=== PATIENT | male | born 1995 | race American Indian/Alaskan Native ===

== ENCOUNTER 2019-04-11 23:08 | Emergency (ER) | payer MEDICAID ==
[2019-04-11] MEDS ORDERED: ATIVAN ONE (23:32)
[2019-04-11 23:36] LABS: Basophils % (Auto) 0.7 % (0.0-1.8); Eosinophils # (Auto) 0.1 K/mm3 (0.0-0.4); Eosinophils % (Auto) 1.9 % (0.0-4.3); Hematocrit 44.4 % (35.5-45.6); Hemoglobin 15.2 gm/dl (11.8-15.2); Lymphocytes # (Auto) 3.1 K/mm3 (1.2-5.4); Lymphocytes % (Auto) 45.6 % (13.4-35.0); Mean Corpuscular HGB Conc 34 % (32-34); Mean Corpuscular Volume 83 fl (84-94); Monocytes # (Auto) 0.9 K/mm3 (0.0-0.8); Monocytes % (Auto) 12.5 % (0.0-7.3); Platelet Count 168 K/mm3 (140-440); Red Blood Count 5.37 M/mm3 (3.65-5.03); Red Cell Distribution Width 13.1 % (13.2-15.2)
[2019-04-11] MEDS ORDERED: WATER FOR INJ Sterile (PF) 10 ML ONE (23:39)
[2019-04-11] MEDS ORDERED: GEODON IM ONE ×2 (23:39→23:45)
--- NOTE | 2019-04-11 23:40 | XRay Report ---
PROCEDURE: XR CHEST 1V AP TECHNIQUE: Chest radiograph single view. HISTORY: Chest Pain COMPARISONS: None . FINDINGS: Heart: Normal. Mediastinum/Vessels: Normal. Lungs/Pleural space: Normal. Bony thorax: No acute osseous abnormality. Life support devices: None. IMPRESSION: No acute cardiopulmonary abnormality. This document is electronically signed by Elvi Contreras DO., April 11 2019 11:38:31 PM ET
[2019-04-11 23:45] LABS: INR 0.95 (0.87-1.13)
[2019-04-11] MEDS ORDERED: ATIVAN IV ONE (23:45)
[2019-04-11 23:46] LABS: Partial Thromboplastin Time 26.5 Sec. (24.2-36.6)
--- NOTE | 2019-04-11 23:47 | Emergency Department Report ---
ED Chest Pain HPI - General Chief Complaint: Chest Pain Stated Complaint: CHEST PAIN Time Seen by Provider: 04/11/19 23:18 Source: patient, family, EMS Mode of arrival: Wheelchair Limitations: Physical Limitation - History of Present Illness Initial Comments: 23-year-old male with a past medical history of hypertension and ADHD presents to the hospital with complaints of chest pain. Mother at the bedside. Patient is hyperventilating and unable to provide any history of present illness. Mother states that patient was found slumped over and unresponsive by other members of the family. He was brought into the home and was noted to have intermittent hyperventilation and shaking all over. Upon EMS arrival patient did receive aspirin and nitroglycerin and continued to exhibit signs and symptoms of hyperventilation around to the hospital. Upon arrival here patient was hyperventilating, tachypnea, with carpopedal spasms. He is unable to speak due to tachypnea c/o chest pain radiating to his back. He is compliant with his medications with the last dose this evening. Mother states that patient discontinued his ADHD medication once was diagnosed with hypertension this past October. Sx tonight happened after taking Lisinopril/hctz for the first time tonight. Prior to this patient was on Norvasc 5 mg but it did not adequately control his pressure - Related Data Home Medications Medication Instructions Recorded Confirmed Last Taken Lisinopril/Hydrochlorothiazide 1 tab PO QDAY 04/12/19 04/12/19 Unknown [Zestoretic 20-25 mg] Omeprazole 40 mg PO 04/12/19 Unknown SUMAtriptan succinate [Imitrex] 50 mg PO 04/12/19 Unknown Tamsulosin [Flomax] 0.4 mg PO QDAY 04/12/19 04/12/19 Unknown Allergies Allergy/AdvReac Type Severity Reaction Status Date / Time No Known Allergies Allergy Verified 04/11/19 23:31 Heart Score - HEART Score History: Slightly suspicious EKG: Normal Age: < 45 Risk factors: 1-2 risk factors Troponin: < normal limit HEART Score: 1 ED Review of Systems ROS: Stated complaint: CHEST PAIN Other details as noted in HPI Comment: Unobtainable due to pts medical conditions ED Past Medical Hx - Past Medical History Previous Medical History?: Yes Hx Hypertension: Yes - Surgical History Past Surgical History?: No - Social History Smoking Status: Current Every Day Smoker Substance Use Type: None - Medications Home Medications: Home Medications Medication Instructions Recorded Confirmed Last Taken Type Lisinopril/Hydrochlorothiazide 1 tab PO QDAY 04/12/19 04/12/19 Unknown History [Zestoretic 20-25 mg] Omeprazole 40 mg PO 04/12/19 Unknown History SUMAtriptan succinate [Imitrex] 50 mg PO 04/12/19 Unknown History Tamsulosin [Flomax] 0.4 mg PO QDAY 04/12/19 04/12/19 Unknown History ED Physical Exam - General Limitations: Physical Limitation - Other Other exam information: General: No limitations, patient is alert in no acute distress Head exam: Atraumatic, normocephalic Eyes exam: Normal appearance, pupils equal reactive to light, extraocular movements intact ENT: Moist mucous membrane, normal oropharynx Neck exam: Normal inspection, full range of motion, no meningismus nontender Respiratory exam: Intermittent periods of hyperventilation and breath holding, lungs clear to auscultation Cardiovascular: Normal rate and rhythm Abdomen: Soft, nondistended, and nontender, with normal bowel sounds, no rebound, or guarding Extremity: Full range of motion normal inspection no deformity, no calf tend erness or edema, carpopedal spasm Back: Normal Inspection, full range of motion, no tenderness Neurologic: Alert, oriented x3, cranial nerves intact, no motor or sensory deficit Skin: Warm, dry, intact ED Course Vital Signs 04/11/19 04/11/19 04/11/19 23:11 23:15 23:30 Temperature 98.8 F Pulse Rate 96 H 82 Respiratory 30 H 11 L 44 H Rate Blood Pressure 137/101 162/110 O2 Sat by Pulse 99 100 99 Oximetry 04/11/19 04/11/19 04/12/19 23:41 23:46 00:00 Temperature Pulse Rate 68 70 76 Respiratory 13 14 Rate Blood Pressure 180/114 146/79 O2 Sat by Pulse 100 98 Oximetry 04/12/19 04/12/19 04/12/19 00:07 00:58 01:00 Temperature Pulse Rate 57 L 60 73 Respiratory 10 L 10 L 11 L Rate Blood Pressure 146/79 152/83 121/85 O2 Sat by Pulse 100 96 Oximetry 04/12/19 04/12/19 04/12/19 01:30 02:00 03:00 Temperature Pulse Rate 64 64 Respiratory 9 L 10 L 10 L Rate Blood Pressure 141/88 129/75 107/69 O2 Sat by Pulse 100 100 100 Oximetry 04/12/19 04/12/19 03:30 04:00 Temperature Pulse Rate 57 L 59 L Respiratory 10 L 10 L Rate Blood Pressure 130/81 142/99 O2 Sat by Pulse 100 Oximetry - Reevaluation(s) Reevaluation #1: 04/12/19 23:45 Pt required Ativan 2 mg followed by Geodon 20 mg IM to finally calm him down to the point where he was not hyperventilating and shaking his arms 04/12/19 01:10 bp improved once pt calmed after receiving meds listed above. Reevaluation #2: 04/12/19 01:17 pt sleeping. He will need a reevaluation once he is awake. IF he is back to normal baseline he may be d/alba with vistaril prn anxiety. If he is still anxiou s or psychotic he will need a psych eval. DANIEL score - Daniel Score Age > 65: (0) No Aspirin use within the Past 7 Days: (0) No 3 or more CAD Risk Factors: (0) No 2 or more Angina events in past 24 hrs: (0) No Known CAD with more than 50% Stenosis: (0) No Elevated Cardiac Markers: (0) No ST Deviation Greater than 0.5mm: (0) No DANIEL Score: 0 ED Medical Decision Making - Lab Data Result diagrams: 04/11/19 23:23 04/11/19 23:23 Lab Results 04/11/19 04/11/19 04/11/19 Range/Units 23:23 23:23 23:23 WBC 6.8 (4.5-11.0) K/mm3 RBC 5.37 H (3.65-5.03) M/mm3 Hgb 15.2 (11.8-15.2) gm/dl Hct 44.4 (35.5-45.6) % MCV 83 L (84-94) fl MCH 28 (28-32) pg MCHC 34 (32-34) % RDW 13.1 L (13.2-15.2) % Plt Count 168 (140-440) K/mm3 Lymph % (Auto) 45.6 H (13.4-35.0) % [place] % (Auto) 12.5 H (0.0-7.3) % Eos % (Auto) 1.9 (0.0-4.3) % Baso % (Auto) 0.7 (0.0-1.8) % Lymph # 3.1 (1.2-5.4) K/mm3 [place] # 0.9 H (0.0-0.8) K/mm3 Eos # 0.1 (0.0-0.4) K/mm3 Baso # 0.0 (0.0-0.1) K/mm3 Seg Neutrophils % 39.3 L (40.0-70.0) % Seg Neutrophils # 2.7 (1.8-7.7) K/mm3 PT 13.2 (12.2-14.9) Sec. INR 0.95 (0.87-1.13) APTT 26.5 (24.2-36.6) Sec. D-Dimer < 135.0 (0-234) ng/mlDDU Sodium 140 (137-145) mmol/L Potassium 3.9 (3.6-5.0) mmol/L Chloride 102.4 (98-107) mmol/L Carbon Dioxide 24 (22-30) mmol/L Anion Gap 18 mmol/L BUN 17 (9-20) mg/dL Creatinine 1.4 (0.8-1.5) mg/dL Estimated GFR > 60 ml/min BUN/Creatinine Ratio 12 % Glucose 118 H (75-100) mg/dL Calcium 10.2 (8.4-10.2) mg/dL Total Bilirubin 0.30 (0.1-1.2) mg/dL AST 28 (5-40) units/L ALT 30 (7-56) units/L Alkaline Phosphatase 92 (35-129) units/L Total Creatine Kinase (55-170) units/L CK-MB (CK-2) (0.0-4.0) ng/mL CK-MB (CK-2) Rel Index (0-4) Troponin T (0.00-0.029) ng/mL Total Protein 7.1 (6.3-8.2) g/dL Albumin 4.4 (3.9-5) g/dL Albumin/Globulin Ratio 1.6 % Urine Color (Yellow) Urine Turbidity (Clear) Urine pH (5.0-7.0) Ur Specific [place] (1.003-1.030) Urine Protein (Negative) mg/dL Urine Glucose (UA) (Negative) mg/dL Urine Ketones (Negative) mg/dL Urine Blood (Negative) Urine Nitrite (Negative) Urine Bilirubin (Negative) Urine Urobilinogen (<2.0) mg/dL Ur Leukocyte Esterase (Negative) Urine WBC (Auto) (0.0-6.0) /HPF Urine RBC (Auto) (0.0-6.0) /HPF Urine Mucus /HPF Plasma/Serum Alcohol (0-0.07) % 04/11/19 04/11/19 04/12/19 Range/Units 23:23 23:23 00:05 WBC (4.5-11.0) K/mm3 RBC (3.65-5.03) M/mm3 Hgb (11.8-15.2) gm/dl Hct (35.5-45.6) % MCV (84-94) fl MCH (28-32) pg MCHC (32-34) % RDW (13.2-15.2) % Plt Count (140-440) K/mm3 Lymph % (Auto) (13.4-35.0) % [place] % (Auto) (0.0-7.3) % Eos % (Auto) (0.0-4.3) % Baso % (Auto) (0.0-1.8) % Lymph # (1.2-5.4) K/mm3 [place] # (0.0-0.8) K/mm3 Eos # (0.0-0.4) K/mm3 Baso # (0.0-0.1) K/mm3 Seg Neutrophils % (40.0-70.0) % Seg Neutrophils # (1.8-7.7) K/mm3 PT (12.2-14.9) Sec. INR (0.87-1.13) APTT (24.2-36.6) Sec. D-Dimer (0-234) ng/mlDDU Sodium (137-145) mmol/L Potassium (3.6-5.0) mmol/L Chloride (98-107) mmol/L Carbon Dioxide (22-30) mmol/L Anion Gap mmol/L BUN (9-20) mg/dL Creatinine (0.8-1.5) mg/dL Estimated GFR ml/min BUN/Creatinine Ratio % Glucose (75-100) mg/dL Calcium (8.4-10.2) mg/dL Total Bilirubin (0.1-1.2) mg/dL AST (5-40) units/L ALT (7-56) units/L Alkaline Phosphatase (35-129) units/L Total Creatine Kinase 541 H (55-170) units/L CK-MB (CK-2) 3.8 (0.0-4.0) ng/mL CK-MB (CK-2) Rel Index 0.7 (0-4) Troponin T < 0.010 (0.00-0.029) ng/mL Total Protein (6.3-8.2) g/dL Albumin (3.9-5) g/dL Albumin/Globulin Ratio % Urine Color Yellow (Yellow) Urine Turbidity Clear (Clear) Urine pH 7.0 (5.0-7.0) Ur Specific [place] 1.013 (1.003-1.030) Urine Protein <15 mg/dl (Negative) mg/dL Urine Glucose (UA) Neg (Negative) mg/dL Urine Ketones Neg (Negative) mg/dL Urine Blood Neg (Negative) Urine Nitrite Neg (Negative) Urine Bilirubin Neg (Negative) Urine Urobilinogen < 2.0 (<2.0) mg/dL Ur Leukocyte Esterase Neg (Negative) Urine WBC (Auto) 2.0 (0.0-6.0) /HPF Urine RBC (Auto) 1.0 (0.0-6.0) /HPF Urine Mucus Few /HPF Plasma/Serum Alcohol < 0.01 (0-0.07) % - EKG Data -: EKG Interpreted by Sc EKG shows normal: sinus rhythm, axis Rate: normal - Radiology Data Radiology results: report reviewed PROCEDURE: XR CHEST 1V AP TECHNIQUE: Chest radiograph single view. HISTORY: Chest Pain COMPARISONS: None . FINDINGS: Heart: Normal. Mediastinum/Vessels: Normal. Lungs/Pleural space: Normal. Bony thorax: No acute osseous abnormality. Life support devices: None. IMPRESSION: No acute cardiopulmonary abnormality. ROCEDURE: CT HEAD/BRAIN WO CON TECHNIQUE: Computerized tomography of the head was performed without contrast material. CT DOSE LENGTH PRODUCT: 1049.5 mGycm HISTORY: unresponsive episode COMPARISONS: None . FINDINGS: Skull and scalp: Normal . Paranasal sinuses: Normal . Ventricles and subarachnoid spaces: Normal . Cerebrum: No evidence of hemorrhage, acute infarction or mass . Cerebellum and brainstem: No evidence of hemorrhage, acute infarction or mass . Vasculature: Normal . Other: None . ASPECTS: 10 IMPRESSION: Normal Examination . PROCEDURE: CT ANGIO CHEST TECHNIQUE: Computerized tomographic angiography of the chest was performed after the IV injection of iodinated nonionic contrast including image processing. The image data was postprocessed using 2-dimensional multiplanar reformatted (MPR) and 3-dimensional (MIP and/or volume rendered) techniques. Automated exposure control, adjustment of mA and/or kV according to patient size, or iterative reconstruction dose optimization techniques were utilized. CT DOSE LENGTH PRODUCT: 797.7 mGycm HISTORY: ? syncope, hyperventilation hypertension, cp COMPARISONS: None . FINDINGS: Heart and pericardium: Normal. Thoracic aorta: Normal. Pulmonary vasculature: There is no evidence of pulmonary arterial emboli. Lymph nodes: No enlarged thoracic lymph nodes. Lungs: The lungs are clear. No infiltrate, effusion or pneumothorax. The central airway is patent. Pleural space: No effusion, thickening, or pneumothorax. Musculoskeletal structures: No significant abnormality. Upper abdominal structures: No significant abnormality. IMPRESSION: Normal Examination . - Medical Decision Making Patient seems to have had a panic/anxiety attack. This happened after taking lisinopril hydrochlorothiazide for the first time. Does not appear to be an allergic reaction or angioedema. As per common reaction/side effect profile for Lisinopril/hydrochlorothiazide can cause: myalgias, hypotension, dizziness, and musculoskeletal pain are listed amongst others. At this time I am unsure if this reaction was due to the medication but it does not appear to be a life threatening event. pt received multiple sedating meds and will be sleep for a while pt s/o to Dr Romano to reassess The patient begins to have continued anxiety/psychiatric symptoms he would need a mental health consult If he wakes up and symptoms are resolved he may be discharged - Differential Diagnosis anxiety, PE, drug abuse, ich, [place], Pneumothorax, anemia, arrhythmia Critical Care Time: No Critical care attestation.: If time is entered above; I have spent that time in minutes in the direct care of this critically ill patient, excluding procedure time. ED Disposition Clinical Impression: Anxiety attack, HTN (hypertension), Atypical chest pain Disposition: - TO HOME OR SELFCARE Is pt being admited?: No Does the pt Need Aspirin: No Condition: Stable Instructions: Chest Pain (ED), Hypertension (ED), Anxiety (ED) Additional Instructions: Take the medication as prescribed. Follow up with your doctor or the clinic/doctor provided. Return if symptoms worsen as indicated by your discharge instructions Referrals: LUIS ENRIQUE SALGUERO MD [Primary Care Provider] - 3-5 Days your, doctor [Other] - 2-3 Days Time of Disposition: 02:00 (s/o Dr Romano)
[2019-04-11 23:59] LABS: Alanine Aminotransferase 30 units/L (7-56); Albumin 4.4 g/dL (3.9-5); BUN/Creatinine Ratio 12; Blood Urea Nitrogen 17 mg/dL (9-20); Calcium 10.2 mg/dL (8.4-10.2); Hemolysis Index 10
[2019-04-12 00:28] LABS: Bilirubin,Urine NEG (Negative); Blood,Urine NEG (Negative); Color,Urine Yellow (Yellow); Mucus,Urine FEW /HPF; Protein,Urine <15 mg/dL mg/dL (Negative); Urobilinogen,Urine < 2.0 mg/dL (<2.0)
--- NOTE | 2019-04-12 00:39 | Cat Scan Report ---
PROCEDURE: CT HEAD/BRAIN WO CON TECHNIQUE: Computerized tomography of the head was performed without contrast material. CT DOSE LENGTH PRODUCT: 1049.5 mGycm HISTORY: unresponsive episode COMPARISONS: None . FINDINGS: Skull and scalp: Normal . Paranasal sinuses: Normal . Ventricles and subarachnoid spaces: Normal . Cerebrum: No evidence of hemorrhage, acute infarction or mass . Cerebellum and brainstem: No evidence of hemorrhage, acute infarction or mass . Vasculature: Normal . Other: None . ASPECTS: 10 IMPRESSION: Normal Examination . This document is electronically signed by Elvi Contreras DO., April 12 2019 12:37:08 AM ET
--- NOTE | 2019-04-12 01:05 | Cat Scan Report ---
PROCEDURE: CT ANGIO CHEST TECHNIQUE: Computerized tomographic angiography of the chest was performed after the IV injection of iodinated nonionic contrast including image processing. The image data was postprocessed using 2-di mensional multiplanar reformatted (MPR) and 3-dimensional (MIP and/or volume rendered) techniques. Au tomated exposure control, adjustment of mA and/or kV according to patient size, or iterative reconstr uction dose optimization techniques were utilized. CT DOSE LENGTH PRODUCT: 797.7 mGycm HISTORY: ? syncope, hyperventilation hypertension, cp COMPARISONS: None . FINDINGS: Heart and pericardium: Normal. Thoracic aorta: Normal. Pulmonary vasculature: There is no evidence of pulmonary arterial emboli. Lymph nodes: No enlarged thoracic lymph nodes. Lungs: The lungs are clear. No infiltrate, effusion or pneumothorax. The central airway is patent. Pleural space: No effusion, thickening, or pneumothorax. Musculoskeletal structures: No significant abnormality. Upper abdominal structures: No significant abnormality. IMPRESSION: Normal Examination . This document is electronically signed by Elvi Contreras DO., April 12 2019 01:02:59 AM ET
[2019-04-12 01:16] LABS: Creatine Kinase MB 3.8 ng/mL (0.0-4.0)
[2019-04-12 01:50] LABS: Amphetamine Screen,Urine PRESUMPTIVE NEGATIVE; Benzodiazepines Screen,Urine PRESUMPTIVE NEGATIVE; Cannabinoid Screen,Urine PRESUMPTIVE NEGATIVE; Cocaine Screen,Urine PRESUMPTIVE NEGATIVE; Methadone Screen,Urine PRESUMPTIVE NEGATIVE; Opiate Screen,Urine PRESUMPTIVE NEGATIVE
[2019-04-12 04:16] VITALS: BP 142/99
== END 2019-04-12 04:16 | disposition home or self-care (01) ==
LOC: ED 23:08
DX: F41.9 Anxiety disorder, unspecified (principal); I10 Essential (primary) hypertension; F90.9 Attention-deficit hyperactivity disorder, unspecified type; F17.200 Nicotine dependence, unspecified, uncomplicated
CPT/HCPCS: 36415; 70450; 71045; 71275; 80053; 80307; 81001; 82550; 82553; 84484; 85025; 85379; 85610; 85730; 93005; 93010; 96372; 96374; 99285; G0480; J2060; J3486; Q9967; 80320

== ENCOUNTER 2021-10-20 14:06 | Emergency (ER) | payer MEDICAID ==
[2021-10-20] MEDS ORDERED: BUTALB/ACETAMINOPHEN/CAFFEINE TAB PO ONE (15:29)
[2021-10-20] MEDS ORDERED: cloNIDine 0.1 MG TAB PO ONE (15:29)
--- NOTE | 2021-10-20 15:36 | Emergency Department Report ---
ED Headache HPI - General Chief Complaint: Headache Stated Complaint: MIGRAINE Time Seen by Provider: 10/20/21 15:00 - History of Present Illness Initial Comments: Patient is a 26-year-old male presents emergency room with complaints of elevated blood pressure. He reports that he takes lisinopril hydrochlorothiazide 20/25 daily. He reports despite taking his medications he remains having elevated blood pressure. He states he knows when his blood pressure is elevated because it caused him to have a headache. He reports he has been having headaches over the last few days. He denies any chest pain, shortness of breath, vision changes, numbness, weakness, speech disturbance, gait disturbance, cough, fever, vomiting, diarrhea. 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 He has not seen a primary care doctor. No allergies to medications. Allergies/Adverse Reactions: Allergies No Known Allergies Allergy (Verified 10/20/21 14:22) Home Medications: Ambulatory Orders Lisinopril/Hydrochlorothiazide [Zestoretic 20-25 mg] 1 tab PO QDAY 04/12/19 Omeprazole 40 mg PO 04/12/19 SUMAtriptan succinate [Imitrex] 50 mg PO 04/12/19 Tamsulosin [Flomax] 0.4 mg PO QDAY 04/12/19 amLODIPine 5 mg PO DAILY #30 tab 10/20/21 ED Review of Systems ROS: Stated complaint: MIGRAINE Other details as noted in HPI Comment: All other systems reviewed and negative ED Past Medical Hx - Past Medical History Hx Hypertension: Yes - Surgical History Additional Surgical History: FINGER - Social History Smoking Status: Current Every Day Smoker Substance Use Type: None - Medications Home Medications: Home Medications Medication Instructions Recorded Confirmed Last Taken Type Lisinopril/Hydrochlorothiazide 1 tab PO QDAY 04/12/19 04/12/19 Unknown History [Zestoretic 20-25 mg] Omeprazole 40 mg PO 04/12/19 Unknown History SUMAtriptan succinate [Imitrex] 50 mg PO 04/12/19 Unknown History Tamsulosin [Flomax] 0.4 mg PO QDAY 04/12/19 04/12/19 Unknown History amLODIPine 5 mg PO DAILY #30 tab 10/20/21 Unknown Rx ED Physical Exam - General Limitations: No Limitations General appearance: alert, in no apparent distress - Head Head exam: Present: atraumatic, normocephalic - Eye Eye exam: Present: normal appearance, PERRL, EOMI. Absent: periorbital swelling, periorbital tenderness - ENT ENT exam: Present: mucous membranes moist - Respiratory Respiratory exam: Present: normal lung sounds bilaterally. Absent: respiratory distress, wheezes, rales, rhonchi, stridor, chest wall tenderness, accessory muscle use, decreased breath sounds, prolonged expiratory - Cardiovascular Cardiovascular Exam: Present: regular rate, normal rhythm, normal heart sounds. Absent: systolic murmur, diastolic murmur, rubs, gallop - Neurological Exam Neurological exam: Present: alert, oriented X3, CN II-XII intact, normal gait. Absent: motor sensory deficit - Psychiatric Psychiatric exam: Present: normal affect, normal mood - Skin Skin exam: Present: warm, dry, intact ED Course Vital Signs 10/20/21 10/20/21 10/20/21 14:27 14:44 15:43 Temperature 98.7 F Pulse Rate 78 96 H Respiratory 18 Rate Blood Pressure 180/137 192/125 Blood Pressure 192/125 [Right] O2 Sat by Pulse 99 Oximetry 10/20/21 16:43 Temperature Pulse Rate 78 Respiratory 14 Rate Blood Pressure Blood Pressure 159/122 [Right] O2 Sat by Pulse 100 Oximetry ED Medical Decision Making - Lab Data Result diagrams: 10/20/21 15:34 10/20/21 15:34 Lab Results 10/20/21 10/20/21 10/20/21 Range/Units 15:34 15:34 Unknown WBC 6.6 (4.5-11.0) K/mm3 RBC 5.97 H (3.65-5.03) M/mm3 Hgb 16.4 H (11.8-15.2) gm/dl Hct 50.7 H (35.5-45.6) % MCV 85 (84-94) fl MCH 27 L (28-32) pg MCHC 32 (32-34) % RDW 13.3 (13.2-15.2) % Plt Count 207 (140-440) K/mm3 Lymph % (Auto) 30.6 (13.4-35.0) % [place] % (Auto) 7.5 H (0.0-7.3) % Eos % (Auto) 1.3 (0.0-4.3) % Baso % (Auto) 0.4 (0.0-1.8) % Lymph # (Auto) 2.0 (1.2-5.4) K/mm3 [place] # (Auto) 0.5 (0.0-0.8) K/mm3 Eos # (Auto) 0.1 (0.0-0.4) K/mm3 Baso # (Auto) 0.0 (0.0-0.1) K/mm3 Seg Neutrophils % 60.2 (40.0-70.0) % Seg Neutrophils # 3.9 (1.8-7.7) K/mm3 Sodium 138 (137-145) mmol/L Potassium 4.4 (3.6-5.0) mmol/L Chloride 97.5 L (98-107) mmol/L Carbon Dioxide 28 (22-30) mmol/L Anion Gap 17 mmol/L BUN 17 (9-20) mg/dL Creatinine 1.8 H (0.8-1.3) mg/dL Estimated GFR 56 ml/min BUN/Creatinine Ratio 9 % Glucose 94 (75-100) mg/dL Calcium 10.2 (8.4-10.2) mg/dL Total Bilirubin 0.50 (0.1-1.2) mg/dL AST 26 (5-40) units/L ALT 30 (7-56) units/L Alkaline Phosphatase 94 (35-129) units/L Total Protein 7.6 (6.3-8.2) g/dL Albumin 4.6 (3.9-5) g/dL Albumin/Globulin Ratio 1.5 % Urine Color Yellow (Yellow) Urine Turbidity Clear (Clear) Urine pH 5.0 (5.0-7.0) Ur Specific [place] 1.013 (1.003-1.030) Urine Protein 100 mg/dl (Negative) mg/dL Urine Glucose (UA) Neg (Negative) mg/dL Urine Ketones Neg (Negative) mg/dL Urine Blood Neg (Negative) Urine Nitrite Neg (Negative) Urine Bilirubin Neg (Negative) Urine Urobilinogen < 2.0 (<2.0) mg/dL Ur Leukocyte Esterase Tr (Negative) Urine WBC (Auto) 45.0 H (0.0-6.0) /HPF Urine RBC (Auto) 2.0 (0.0-6.0) /HPF U Epithel Cells (Auto) < 1.0 (0-13.0) /HPF Urine Mucus Few /HPF Vital Signs 10/20/21 10/20/21 10/20/21 14:27 14:44 15:43 Temperature 98.7 F Pulse Rate 78 96 H Respiratory 18 Rate Blood Pressure 180/137 192/125 Blood Pressure 192/125 [Right] O2 Sat by Pulse 99 Oximetry 10/20/21 16:43 Temperature Pulse Rate 78 Respiratory 14 Rate Blood Pressure Blood Pressure 159/122 [Right] O2 Sat by Pulse 100 Oximetry - Medical Decision Making Patient is a 26-year-old male presents emergency room with complaints of elevated blood pressure. He reports that he takes lisinopril hydrochlorothiazide 20/25 daily. He reports despite taking his medications he remains having elevated blood pressure. He states he knows when his blood pressure is elevated because it caused him to have a headache. He reports he has been having headaches over the last few days. He denies any chest pain, shortness of breath, vision changes, numbness, weakness, speech disturbance, gait disturbance, cough, fever, vomiting, diarrhea. 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 He has not seen a primary care doctor. No allergies to medications. Vitals significant for elevated blood pressure with some improvement on clonidine administration. Patient's headache has resolved. Patient has no focal neuro deficits on exam. Labs with elevated creatinine, normal BUN. UA shows wbcs, trace leukocyte, he denies urinary symptoms or penile discharge. Discussed all findings with patient. Patient will be started on amlodipine low-dose along with his regular blood pressure medication. Advised patient Please take medication as prescribed. Increase your water intake. Eat a low-sodium diet. Incorporate 30 to 60 minutes of daily exercise. Keep a blood pressure log and take this to the primary care doctor. Follow-up with your primary care doctor. Return to emergency room for any new or worsening symptoms. Critical care attestation.: If time is entered above; I have spent that time in minutes in the direct care of this critically ill patient, excluding procedure time. ED Disposition Clinical Impression: Hypertensive urgency, Renal dysfunction Disposition: 01 HOME / SELF CARE / HOMELESS Is pt being admited?: No Does the pt Need Aspirin: No Condition: Stable Instructions: Managing Your Hypertension Additional Instructions: Please take medication as prescribed. Increase your water intake. Eat a low- sodium diet. Incorporate 30 to 60 minutes of daily exercise. Keep a blood pressure log and take this to the primary care doctor. Follow-up with your primary care doctor. Return to emergency room for any new or worsening symptoms. Prescriptions: amLODIPine 5 mg PO DAILY #30 tab Referrals: LUIS ENRIQUE SALGUERO MD [Staff Physician] - 3-5 Days RUY MINAYA MD [Staff Physician] - 3-5 Days [facility] [Provider Group] - 3-5 Days MOLLY ADAMS MD [Staff Physician] - 3-5 Days Time of Disposition: 17:05 Print Language: [place]
[2021-10-20 16:07] LABS: Albumin 4.6 g/dL (3.9-5); Basophils % (Auto) 0.4 % (0.0-1.8); Calcium 10.2 mg/dL (8.4-10.2); Eosinophils # (Auto) 0.1 K/mm3 (0.0-0.4); Eosinophils % (Auto) 1.3 % (0.0-4.3); Hematocrit 50.7 % (35.5-45.6); Hemoglobin 16.4 gm/dl (11.8-15.2); Lymphocytes % (Auto) 30.6 % (13.4-35.0); Mean Corpuscular HGB Conc 32 % (32-34); Mean Corpuscular Volume 85 fl (84-94); Monocytes # (Auto) 0.5 K/mm3 (0.0-0.8); Monocytes % (Auto) 7.5 % (0.0-7.3); Platelet Count 207 K/mm3 (140-440); Red Blood Count 5.97 M/mm3 (3.65-5.03); Red Cell Distribution Width 13.3 % (13.2-15.2)
[2021-10-20 16:35] LABS: Bilirubin,Urine NEG (Negative); Blood,Urine NEG (Negative); Color,Urine Yellow (Yellow); Mucus,Urine FEW /HPF; Urobilinogen,Urine < 2.0 mg/dL (<2.0)
[2021-10-20 16:45] VITALS: BP 159/122
== END 2021-10-20 17:30 | disposition home or self-care (01) ==
LOC: ED 14:06
DX: I16.0 Hypertensive urgency (principal); N28.9 Disorder of kidney and ureter, unspecified; F17.200 Nicotine dependence, unspecified, uncomplicated; Z79.899 Other long term (current) drug therapy
CPT/HCPCS: 36415; 80053; 81001; 85025; 87086; 99283